=== PATIENT | female | born 1935 | race Caucasian/White ===

== ENCOUNTER 2017-09-02 19:03 | Emergency (ER) | payer MEDICARE, OTHER ==
[2017-09-02] MEDS: CLINDAMYCIN 150 MG CAP PO ×2 (19:54)
== END 2017-09-02 20:14 | disposition home or self-care (01) ==
LOC: M ED 19:03
DX: L03.116 Cellulitis of left lower limb (principal); I10 Essential (primary) hypertension; F41.9 Anxiety disorder, unspecified; Z88.0 Allergy status to penicillin; Z79.899 Other long term (current) drug therapy; Z79.82 Long term (current) use of aspirin
CPT/HCPCS: 99282